=== PATIENT | male | born 1970 | race African-American/Black ===

== ENCOUNTER 2017-04-02 10:54 | Emergency (ER) | payer MEDICAID, OTHER ==
--- NOTE | 2017-04-02 11:19 | EKG REPORT ---
SEVERITY:- BORDERLINE ECG - SINUS RHYTHM CONSIDER ANTERIOR INFARCT : Confirmed by: Saroj Barrientos 02-Apr-2017 11:18:42
--- NOTE | 2017-04-02 11:26 | ER Document Report ---
ED Medical Screen (RME) - General Mode of Arrival: Ambulatory Information source: Patient TRAVEL OUTSIDE OF THE [place] IN LAST 30 DAYS: No - HPI Patient complains to provider of: Left chest pain Onset: Yesterday Onset/Duration: Constant Associated Symptoms: Other - see notes above - Related Data Smoking: Cigarettes Frequency of alcohol use: Social Drug Abuse: Cocaine - quit 20 years ago, Marijuana <SHAHNAZ BINGHAM - Last Filed: 04/02/17 12:19> <BELLE BARNARD - Last Filed: 04/02/17 13:32> - General Chief Complaint: Chest Pain > 30 Stated Complaint: CHEST PAIN Time Seen by Provider: 04/02/17 11:21 Notes: 47-year-old male with history of diabetes mellitus type 2, hyperlipidemia presents to the ED complaining of sharp chest pain that precipitated while working yesterday. Patient reports that the pain has radiated to his left neck , shoulders, and down his left arm. 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 Patient also states that he had mild shortness of breath yesterday, but resolved with aspirin and rest. Patient reports that he was once told that he might have congestive heart failure, but he followed up with another physician and had a negative cardiac stress test was 5 years ago. Reports to marijuana use and past history of cocaine use 20 years ago. (SHAHNAZ BINGHAM) - Related Data Allergies/Adverse Reactions: No Known Allergies Allergy (Verified 04/02/17 10:56) Past Medical History - General Information source: Patient - Social History Cigarette use (# per day): Yes Chew tobacco use (# tins/day): No Frequency of alcohol use: Social Drug Abuse: Cocaine - quit 20 years ago, Marijuana - Past Medical History Cardiac Medical History: Reports: Hx Hypercholesterolemia Endocrine Medical History: Reports: Hx Diabetes Mellitus Type 2 Renal/ Medical History: Denies: Hx Peritoneal Dialysis Psychiatric Medical History: Reports: Hx Depression - Immunizations Hx Diphtheria, Pertussis, Tetanus Vaccination: Yes <SHAHNAZ BINGHAM - Last Filed: 04/02/17 12:19> Review of Systems - Review of Systems Constitutional: No symptoms reported EENT: No symptoms reported Cardiovascular: See HPI, Chest pain - left Respiratory: No symptoms reported Gastrointestinal: No symptoms reported Genitourinary: No symptoms reported Male Genitourinary: No symptoms reported Musculoskeletal: See HPI, Joint pain - left shoulder, Neck pain - left, Other - left arm pain Skin: No symptoms reported Hematologic/Lymphatic: No symptoms reported Neurological/Psychological: No symptoms reported -: Yes All other systems reviewed and negative <SHAHNAZ BINGHAM - Last Filed: 04/02/17 12:19> Physical Exam - General General appearance: Alert In distress: None - Respiratory Respiratory status: No respiratory distress Chest status: Tender - see below Breath sounds: Normal Chest palpation: Tender - Reproducible tenderness to palpation of the anterior left chest wall. No right chest wall tenderness., Other - No lesions noted on the chest.. No: Normal - Cardiovascular Rhythm: Regular Heart sounds: Normal auscultation Murmur: No Friction rub: No Gallop: None auscultated - Abdominal Inspection: Normal Distension: No distension Tenderness: Tender - mild epigastric tenderness to palpation <SHAHNAZ BINGHAM - Last Filed: 04/02/17 12:19> Course - Laboratory Result Diagrams: 04/02/17 12:27 04/02/17 12:27 <BELLE BARNARD - Last Filed: 04/02/17 13:32> - Vital Signs Vital signs: Temp Pulse Resp BP Pulse Ox 98.4 F 90 18 132/85 H 100 04/02/17 11:10 04/02/17 11:10 04/02/17 11:10 04/02/17 11:10 04/02/17 11:10 - Laboratory Laboratory results interpreted by me: 04/02/17 12:27 Chloride 108 H Glucose 114 H Alkaline Phosphatase 35 L Creatine Kinase 315 H Scribe Documentation - Scribe Written by Rodri:: Rodri Wells, 04/02/2017 1240 acting as scribe for :: Nita <SHAHNAZ BINGHAM - Last Filed: 04/02/17 12:19>
[2017-04-02] MEDS ORDERED: NITROGLYCERIN 0.4 MG/TAB 25 TAB/BOTTLE SL PRN (11:27)
[2017-04-02] MEDS ORDERED: ASPIRIN 325 MG TABLET PO ONE (11:27)
[2017-04-02 12:43] LABS: ABSOLUTE EOSINOPHILS # (AUTO) 0.2 10^3/uL (0.0-0.6); ABSOLUTE MONOCYTES (AUTO) 0.5 10^3/uL (0.1-1.4); ABSOLUTE NEUT (AUTO) 3.7 10^3/uL (1.7-8.2); BASOPHILS % (AUTO) 0.7 % (0-2); EOSINOPHILS % (AUTO) 2.3 % (0-6); HEMATOCRIT 47.6 % (37.9-51.0); HEMOGLOBIN 15.6 g/dL (13.5-17.0); HGB HCT DIFFERENCE -0.8; LYMPHOCYTES % (AUTO) 39.9 % (13-45); MEAN CORPUSCULAR HEMOGLOBIN 28.7 pg (27.0-33.4); MEAN CORPUSCULAR HGB CONC 32.7 g/dL (32.0-36.0); MEAN CORPUSCULAR VOLUME 88 fl (80-97); MONOCYTES % (AUTO) 7.2 % (3-13); RED BLOOD COUNT 5.42 10^6/uL (4.35-5.55); RED CELL DISTRIBUTION WIDTH 13.8 % (11.5-14.0); SEGMENTED NEUTROPHILS % (AUTO) 49.9 % (42-78); WHITE BLOOD COUNT 7.4 10^3/uL (4.0-10.5)
--- NOTE | 2017-04-02 12:44 | RADIOLOGY REPORT (SQ) ---
EXAM DESCRIPTION: CHEST PA/LAT COMPLETED DATE/TIME: 04/02/2017 12:36 pm REASON FOR STUDY: chest pain COMPARISON: 02/05/2016 EXAM PARAMETERS: NUMBER OF VIEWS: two views TECHNIQUE: Digital Frontal and Lateral radiographic views of the chest acquired. RADIATION DOSE: NA LIMITATIONS: none FINDINGS: LUNGS AND PLEURA: No opacities, masses or pneumothorax. No pleural effusion. MEDIASTINUM AND HILAR STRUCTURES: No masses or contour abnormalities. HEART AND VASCULAR STRUCTURES: Heart normal size. No evidence for failure. BONES: No acute findings. HARDWARE: None in the chest. OTHER: No other significant finding. IMPRESSION: NO SIGNIFICANT RADIOGRAPHIC FINDING IN THE CHEST. TECHNICAL DOCUMENTATION: JOB ID: [id number] [employer]- All Rights Reserved
[2017-04-02 12:57] LABS: PROTHROMBIN TIME 12.2 SEC (11.4-15.4)
[2017-04-02 13:06] LABS: ALANINE AMINOTRANSFERASE 63 U/L (21-72); ALBUMIN 4.3 g/dL (3.5-5.0); ALKALINE PHOSPHATASE 35 U/L (38-126); ANION GAP 11 (5-19); ASPARTATE AMINO TRANSFERASE 34 U/L (17-59); BILIRUBIN,DIRECT 0.3 mg/dL (0.0-0.4); BILIRUBIN,TOTAL 0.7 mg/dL (0.2-1.3); BLOOD UREA NITROGEN 10 mg/dL (7-20); CALCIUM 9.5 mg/dL (8.4-10.2); CARBON DIOXIDE 24 mmol/L (22-30); CHLORIDE 108 mmol/L (98-107); CREATINE KINASE 315 U/L (55-170); CREATININE RESULT 0.82 mg/dL (0.52-1.25); GLUCOSE 114 mg/dL (75-110); POTASSIUM 4.3 mmol/L (3.6-5.0); SODIUM 142.7 mmol/L (137-145); TOTAL PROTEIN 7.6 g/dL (6.3-8.2)
[2017-04-02 13:16] LABS: CREATINE KINASE MB 2.04 ng/mL (<4.55)
[2017-04-02 13:18] LABS: TROPONIN I < 0.012 ng/mL
--- NOTE | 2017-04-02 16:42 | RADIOLOGY REPORT (SQ) ---
EXAM DESCRIPTION: CT HEAD WITHOUT COMPLETED DATE/TIME: 04/02/2017 4:34 pm REASON FOR STUDY: 5, chest and neck pain with left sided numbness COMPARISON: None. TECHNIQUE: Axial images acquired through the brain without intravenous contrast. Images reviewed wi th bone, brain and subdural windows. Images stored on PACS. All CT scanners at this facility use dose modulation, iterative reconstruction, and/or weight based d osing when appropriate to reduce radiation dose to as low as reasonably achievable (ALARA). [facility]: Dose Right [facility]: CareDose [facility]: Dose Right [facility]: Teradose 4D [facility]: [employer] RADIATION DOSE: 64.61 mGy. LIMITATIONS: None. FINDINGS: VENTRICLES: Normal size and contour. CEREBRUM: No masses. No hemorrhage. No midline shift. Normal vale/white matter differentiation. N o evidence for acute infarction. CEREBELLUM: No masses. No hemorrhage. No alteration of density. No evidence for acute infarction. EXTRAAXIAL SPACES: No fluid collections. No masses. ORBITS AND GLOBE: No intra- or extraconal masses. Normal contour of globe without masses. CALVARIUM: No fracture. PARANASAL SINUSES: Small amount of fluid noted in the right maxillary sinus. The paranasal sinuses a nd mastoid air cells are otherwise clear. SOFT TISSUES: No mass or hematoma. OTHER: No other significant finding. IMPRESSION: No acute intracranial abnormality identified. Small amount of fluid noted in the right maxillary sinus. TECHNICAL DOCUMENTATION: JOB ID: [id number] Quality ID # [id number]: Final reports with documentation of one or more dose reduction techniques (e.g., Au tomated exposure control, adjustment of the mA and/or kV according to patient size, use of iterative reconstruction technique) 2010 [employer]- All Rights Reserved
--- NOTE | 2017-04-02 16:47 | ER Document Report ---
ED Cardiac - General Chief Complaint: Chest Pain > 30 Stated Complaint: CHEST PAIN Time Seen by Provider: 04/02/17 11:21 Mode of Arrival: Ambulatory Information source: Patient Notes: 47-year-old male who presents today with what he states is the onset of some chest pain with radiation to his left lateral neck as well as some numbness to his left arm. He denies any weakness to his arm. Patient states he has had pain and numbness like this intermittently for "a few years". He denies any and all nausea, vomiting, fevers, shortness of breath, calf pain or leg swelling. Patient states he has had an unremarkable stress test in the past. Patient denies any posterior neck pain but states that the pain in his chest ones at the lateral left side of his neck. Patient states he smokes marijuana occasionally but denies any cocaine. Patient denies any family history of early heart disease. Patient does not smoke cigarettes. No recent trips or travel. Denies any and all shortness of breath. TRAVEL OUTSIDE OF THE [place] IN LAST 30 DAYS: No - HPI Patient complains to provider of: Chest pain Was the onset of pain: Gradual Is the pain a: Chronic problem Chest pain location: Substernal Quality of pain: Mild, Cramping Chest pain radiation location: None - See above Severity now: None Severity at worst: Mild Pain level currently: Denies Cardiac risk factors: Diabetes, Dyslipidemia Positive cardiac history: No Associated symptoms: Other - See above Exacerbated by: Denies Relieved by: Nothing Similar symptoms previously: No Recently seen / treated by doctor: No - Related Data Allergies/Adverse Reactions: No Known Allergies Allergy (Verified 04/02/17 10:56) Past Medical History - General Information source: Patient - Social History Smoking Status: Never Smoker Cigarette use (# per day): Yes Chew tobacco use (# tins/day): No Frequency of alcohol use: None Drug Abuse: None Family History: Reviewed & Not Pertinent Patient has suicidal ideation: No Patient has homicidal ideation: No - Past Medical History Cardiac Medical History: Reports: Hx Hypercholesterolemia Endocrine Medical History: Reports: Hx Diabetes Mellitus Type 2 Renal/ Medical History: Denies: Hx Peritoneal Dialysis Psychiatric Medical History: Reports: Hx Depression - Immunizations Hx Diphtheria, Pertussis, Tetanus Vaccination: Yes Review of Systems - Review of Systems Constitutional: denies: Fever EENT: denies: Eye discharge, Nose discharge Cardiovascular: denies: Palpitations Respiratory: denies: Short of breath Gastrointestinal: denies: Abdomen distended, Abdominal pain, Vomiting Musculoskeletal: denies: Leg swelling Skin: Other - no hives. denies: Rash Neurological/Psychological: Other - no slurred speech -: Yes All other systems reviewed and negative Physical Exam - Vital signs Vitals: Temp Pulse Resp BP Pulse Ox 98.4 F 90 18 132/85 H 100 04/02/17 11:10 04/02/17 11:10 04/02/17 11:10 04/02/17 11:10 04/02/17 11:10 Notes: Reviewed vital signs and nursing note as charted by RN. CONSTITUTIONAL: Alert and oriented and responds appropriately to questions. Well -appearing; well-nourished HEAD: Normocephalic; atraumatic EYES: PERRL ENT: Normal nose; no rhinorrhea; moist mucous membranes; pharynx without lesions noted NECK: Supple without meningismus; no carotid bruits no obvious neck swelling; no cervical lymphadenopathy, no masses CARD: Regular rate and rhythm; no murmurs, no clicks, no rubs, no gallops; symmetric distal pulses RESP: Normal chest excursion without splinting or tachypnea; breath sounds clear and equal bilaterally; no wheezes, no rhonchi, no rales ABD/GI: Normal bowel sounds; non-distended; soft, non-tender, no rebound, no guarding; no palpable organomegaly or masses BACK: The back appears normal and is non-tender to palpation, there is no CVA tenderness EXT: Normal ROM in all joints; non-tender to palpation; no cyanosis, no effusions, no edema SKIN: Normal color for age and race; warm; dry; good turgor; capillary refill < 2 seconds; no acute lesions noted NEURO: CN II through XII intact. Patient has 5 out of 5 bilateral upper and lower extremity strength. Patient does endorse some mild decreased sensation to the left lateral shoulder. PSYCH: The patient's mood and manner are appropriate. Grooming and personal hygiene are appropriate. Course - Re-evaluation Re-evalutation: Given the above history and physical examination I believe pulmonary embolism to be extremely unlikely. EKG, troponin, x-ray of the chest, and aspirin has been provided. Patient has no weakness on examination. Patient's pain has been intermittent for 2-3 years. He denies any recent aggravating or relieving factors. Patient had an evaluation for this in the past with an unremarkable stress test. Patient has no carotid bruits no obvious neck swelling or tenderness. EKG showed heart rate of 89, normal sinus rhythm, normal axis, no obvious ST elevation or depression. Poor R-wave progression. EKG from January 2016 shows no acute change. 04/02/17 16:46 First set cardiac enzymes unremarkable. CT of the head and CTA of the neck has been ordered to evaluate for possible CVA or carotid/vertebral dissection. Repeat troponin is pending. 04/02/17 16:47 Chest x-ray shows normal heart, normal mediastinum, no fractures, normal lung tavares, no pneumothorax. CT scan of the head is unremarkable. 04/02/17 17:20 Repeat troponin unremarkable. Patient's pain is improved. No change in neurologic exam. CT of the head and CTA of the neck shows no acute intracranial pathology or arterial pathology. Given the above history, physical, extensive workup, patient will be discharged home with strict return precautions and follow-up with an outpatient primary care physician. Patient is in agreement with this plan. - Vital Signs Vital signs: Temp Pulse Resp BP Pulse Ox 98.4 F 90 18 132/85 H 100 04/02/17 11:10 04/02/17 11:10 04/02/17 11:10 04/02/17 11:10 04/02/17 11:10 - Laboratory Result Diagrams: 04/02/17 12:27 04/02/17 12:27 Laboratory results interpreted by me: 04/02/17 12:27 Chloride 108 H Glucose 114 H Alkaline Phosphatase 35 L Creatine Kinase 315 H Discharge - Discharge Clinical Impression: Paresthesias in left hand Chest pain Qualifiers: Chest pain type: unspecified Qualified Code(s): R07.9 - Chest pain, unspecified Condition: Good Disposition: HOME, SELF-CARE Additional Instructions: Come back immediately with any return of pain, change in location or quality of pain, weakness, increased numbness, calf pain, leg swelling, fevers, or any other acute problems. Please follow-up with primary care provider we have suggested Referrals: STACY,MAGO [Primary Care Provider] - Follow up as needed ARTURO PÉREZ MD [ACTIVE STAFF] - Follow up as needed
--- NOTE | 2017-04-02 16:49 | RADIOLOGY REPORT (SQ) ---
EXAM DESCRIPTION: CTA NECK COMPLETED DATE/TIME: 04/02/2017 4:34 pm REASON FOR STUDY: 5, chest and neck pain with left sided numbness COMPARISON: None. TECHNIQUE: Axial dynamic scanning technique with dynamic contrast enhancement through the extra-aircraft shipping checker nial carotid and vertebral arteries. Multiplanar reconstruction. 3-D MIPS and Volume-rendered imag es acquired at the workstation and saved to PACS. Images are reviewed in soft tissue, bone, lung w indows. All CT scanners at this facility use dose modulation, iterative reconstruction, and/or weight based d osing when appropriate to reduce radiation dose to as low as reasonably achievable (ALARA). [facility]: Dose Right [facility]: CareDose [facility]: Dose Right [facility]: Teradose 4D [facility]: [employer] CONTRAST TYPE AND DOSE: contrast/concentration: Isovue 370.00 mg/ml; Total Contrast Delivered: 70.0 ml; Total Saline Delivered: 75.0 ml RENAL FUNCTION: BUN 10 creatinine 0.82 LIMITATIONS: None. FINDINGS: AORTIC ARCH: The a right subclavian, right common carotid, and left common carotid arterie s share a common origin with a trifurcation. Bilateral subclavian arteries are patent. No dissecti on. RIGHT CAROTIDS: Patent common, internal and external carotid arteries without suggestion of significa nt stenosis or irregular plaque. No dissection. RIGHT VERTEBRAL: Patent. No dissection. LEFT CAROTIDS: Patent common, internal and external carotid arteries without suggestion of significan t stenosis or irregular plaque. No dissection. LEFT VERTEBRAL: Patent. No dissection. OTHER: No other significant finding. OTHER: 3-D reconstructions confirm findings. IMPRESSION: NORMAL CTA OF THE EXTRA-CRANIAL CAROTID AND VERTEBRAL ARTERIES. COMMENT: Quality ID #[id number]: Measurements of distal internal carotid diameter were used as the denomina tor for stenosis measurement. TECHNICAL DOCUMENTATION: JOB ID: [id number] Quality ID # [id number]: Final reports with documentation of one or more dose reduction techniques (e.g., Au tomated exposure control, adjustment of the mA and/or kV according to patient size, use of iterative reconstruction technique) 2010 [facility]- All Rights Reserved
[2017-04-02 18:15] VITALS: BP 144/95
== END 2017-04-02 18:15 | disposition home or self-care (01) ==
LOC: ER 10:54
DX: R20.0 Anesthesia of skin (principal); R07.9 Chest pain, unspecified
CPT/HCPCS: 36415; 70450; 70498; 71020; 80053; 82550; 82553; 84484; 85025; 85610; 93005; 93010; 99285

== ENCOUNTER 2017-11-11 12:08 | Emergency (ER) | payer SELFPAY ==
[2017-11-11] MEDS ORDERED: KETOROLAC TROMETHAMINE INJ/PF 30 MG/1 ML SDV IV ONE (13:00)
[2017-11-11] MEDS ORDERED: PROCHLORPERAZINE EDISYLATE INJ 10 MG/2 ML VIAL IV ONE (13:00)
--- NOTE | 2017-11-11 13:05 | ER Document Report ---
ED Medical Screen (RME) - General Chief Complaint: Headache Stated Complaint: HEADACHE, HAND LACERATION Time Seen by Provider: 11/11/17 12:59 Mode of Arrival: Ambulatory Information source: Patient Notes: Patient is a 47-year-old diabetic patient who presents to the ER today for headache for a couple of days ever since hitting his head on a door frame at work accidentally. Patient did not lose consciousness, has had no blurred vision, nausea, vomiting, states that he does not usually get headaches or migraines. He denies any light or sound sensitivity. Patient also has a cut to the third finger on his right hand that is approximately a week old that he is concerned for infection. Patient states it hurts to bend the finger and that he feels swelling going up to his wrist. He denies any fevers or chills, drainage from the area. TRAVEL OUTSIDE OF THE [place] IN LAST 30 DAYS: No - Related Data Allergies/Adverse Reactions: No Known Allergies Allergy (Verified 04/02/17 10:56) Past Medical History - General Information source: Patient - Past Medical History Cardiac Medical History: Reports: Hx Hypercholesterolemia Endocrine Medical History: Reports: Hx Diabetes Mellitus Type 2 Renal/ Medical History: Denies: Hx Peritoneal Dialysis Psychiatric Medical History: Reports: Hx Depression - Immunizations Hx Diphtheria, Pertussis, Tetanus Vaccination: Yes Review of Systems - Review of Systems Skin: See HPI Neurological/Psychological: See HPI Physical Exam - Vital signs Vitals: Temp Pulse Resp BP Pulse Ox 98.5 F 93 20 147/94 H 98 11/11/17 12:20 11/11/17 12:20 11/11/17 12:20 11/11/17 12:20 11/11/17 12:20 - Notes Notes: PHYSICAL EXAMINATION: GENERAL: Well-appearing and in no acute distress. NEUROLOGICAL: Cranial nerves grossly intact. Normal sensory/motor exams. SKIN: Warm, Dry, normal turgor, 1 cm laceration, no drainage or erythema to dorsal right 3rd digit of right hand over PIP joint, pt can bend finger but has pain to do so Course - Vital Signs Vital signs: Temp Pulse Resp BP Pulse Ox 98.5 F 93 20 147/94 H 98 11/11/17 12:20 11/11/17 12:20 11/11/17 12:20 11/11/17 12:20 11/11/17 12:20
[2017-11-11 13:38] LABS: ABSOLUTE BASOPHILS # (AUTO) 0.1 10^3/uL (0.0-0.2); ABSOLUTE EOSINOPHILS # (AUTO) 0.4 10^3/uL (0.0-0.6); ABSOLUTE LYMPHOCYTES (AUTO) 3.4 10^3/uL (0.5-4.7); ABSOLUTE MONOCYTES (AUTO) 0.6 10^3/uL (0.1-1.4); BASOPHILS % (AUTO) 0.9 % (0-2); EOSINOPHILS % (AUTO) 4.2 % (0-6); HEMATOCRIT 47.2 % (37.9-51.0); HEMOGLOBIN 16.2 g/dL (13.5-17.0); LYMPHOCYTES % (AUTO) 35.8 % (13-45); MEAN CORPUSCULAR HEMOGLOBIN 29.4 pg (27.0-33.4); MEAN CORPUSCULAR HGB CONC 34.3 g/dL (32.0-36.0); MEAN CORPUSCULAR VOLUME 86 fl (80-97); MONOCYTES % (AUTO) 6.6 % (3-13); PLATELET COUNT 325 10^3/uL (150-450); RED BLOOD COUNT 5.49 10^6/uL (4.35-5.55); RED CELL DISTRIBUTION WIDTH 13.3 % (11.5-14.0); SEGMENTED NEUTROPHILS % (AUTO) 52.5 % (42-78); TOTAL CELLS COUNTED % (AUTO) 100 %; WHITE BLOOD COUNT 9.6 10^3/uL (4.0-10.5)
[2017-11-11 13:47] LABS: APPEARANCE,URINE CLEAR; BILIRUBIN,URINE NEGATIVE (NEGATIVE); COLOR,URINE YELLOW; GLUCOSE, URINE NEGATIVE (NEGATIVE); KETONES,URINE NEGATIVE (NEGATIVE); LEUKOCYTE ESTERASE,URINE NEGATIVE (NEGATIVE); NITRITE,URINE NEGATIVE (NEGATIVE); PROTEIN,URINE NEGATIVE (NEGATIVE); UROBILINOGEN,URINE NEGATIVE mg/dL (<2.0)
[2017-11-11 13:55] LABS: ALANINE AMINOTRANSFERASE 65 U/L (21-72); ALBUMIN 4.8 g/dL (3.5-5.0); ALKALINE PHOSPHATASE 40 U/L (38-126); ANION GAP 8 (5-19); ASPARTATE AMINO TRANSFERASE 31 U/L (17-59); BILIRUBIN,DIRECT 0.2 mg/dL (0.0-0.4); BILIRUBIN,TOTAL 0.6 mg/dL (0.2-1.3); BLOOD UREA NITROGEN 10 mg/dL (7-20); CALCIUM 10.3 mg/dL (8.4-10.2); CARBON DIOXIDE 26 mmol/L (22-30); CHLORIDE 105 mmol/L (98-107); GLUCOSE 111 mg/dL (75-110); POTASSIUM 4.4 mmol/L (3.6-5.0); SODIUM 138.8 mmol/L (137-145); TOTAL PROTEIN 7.8 g/dL (6.3-8.2)
[2017-11-11] MEDS ORDERED: HYDROCODONE/ACETAMINOPHEN 5-325 MG (6 TAB/ER DISP) PO PRN (16:18)
[2017-11-11] MEDS ORDERED: CEPHALEXIN 500 MG CAPSULE PO ONE (16:18)
--- NOTE | 2017-11-11 16:18 | ER Document Report ---
ED Headache - General Chief Complaint: Headache Stated Complaint: HEADACHE, HAND LACERATION Time Seen by Provider: 11/11/17 12:59 Mode of Arrival: Ambulatory TRAVEL OUTSIDE OF THE [place] IN LAST 30 DAYS: No - Related Data Allergies/Adverse Reactions: No Known Allergies Allergy (Verified 04/02/17 10:56) Past Medical History - General Information source: Patient - Social History Smoking Status: Current Every Day Smoker Chew tobacco use (# tins/day): No Frequency of alcohol use: Social Drug Abuse: Marijuana Family History: Reviewed & Not Pertinent Patient has suicidal ideation: No Patient has homicidal ideation: No - Past Medical History Cardiac Medical History: Reports: Hx Hypercholesterolemia Endocrine Medical History: Reports: Hx Diabetes Mellitus Type 2 Renal/ Medical History: Denies: Hx Peritoneal Dialysis Psychiatric Medical History: Reports: Hx Depression - Immunizations Hx Diphtheria, Pertussis, Tetanus Vaccination: Yes Physical Exam - Vital signs Vitals: Temp Pulse Resp BP Pulse Ox 98.5 F 93 20 147/94 H 98 11/11/17 12:20 11/11/17 12:20 11/11/17 12:20 11/11/17 12:20 11/11/17 12:20 Course - Vital Signs Vital signs: Temp Pulse Resp BP Pulse Ox 98.5 F 93 20 147/94 H 98 11/11/17 12:20 11/11/17 12:20 11/11/17 12:20 11/11/17 12:20 11/11/17 12:20 - Laboratory Result Diagrams: 11/11/17 13:25 11/11/17 13:25 Laboratory results interpreted by me: 11/11/17 13:25 Glucose 111 H Calcium 10.3 H Discharge - Discharge Clinical Impression: Headache Qualifiers: Headache type: unspecified Headache chronicity pattern: acute headache Intractability: not intractable Qualified Code(s): R51 - Headache Laceration of hand with infection Qualifiers: Encounter type: sequela Laterality: right Qualified Code(s): S61.411S - Laceration without foreign body of right hand, sequela; L08.9 - Local infection of the skin and subcutaneous tissue, unspecified; L08.9 - Local infection of the skin and subcutaneous tissue, unspecified Condition: Stable Disposition: HOME, SELF-CARE Additional Instructions: Return immediately for any new or worsening symptoms. Follow up with primary care provider, call tomorrow to make followup appointment. Prescriptions: Cephalexin Monohydrate [Keflex 500 mg Capsule] 500 mg PO BID 10 Days #20 capsule Forms: Return to Work
[2017-11-11 17:07] VITALS: BP 134/80
== END 2017-11-11 16:45 | disposition home or self-care (01) ==
LOC: ER 12:08
DX: R51 Headache (principal); E78.00 Pure hypercholesterolemia, unspecified; I10 Essential (primary) hypertension; S61.411S Laceration without foreign body of right hand, sequela; L08.9 Local infection of the skin and subcutaneous tissue, unspecified; W45.8XXS Other foreign body or object entering through skin, sequela; F17.200 Nicotine dependence, unspecified, uncomplicated; E11.9 Type 2 diabetes mellitus without complications
CPT/HCPCS: 99284; 96374; 96375; 36415; 85025; 80053; 81001; J1885; J0780

== ENCOUNTER 2017-11-21 06:52 | Emergency (ER) | payer SELFPAY ==
--- NOTE | 2017-11-21 08:07 | ER Document Report ---
ED General - General Chief Complaint: Headache Stated Complaint: HEADACHE Time Seen by Provider: 11/21/17 07:33 Mode of Arrival: Ambulatory Information source: Patient Notes: 47-year-old male history of diabetes who is not on any medication presents with complaints of tingling sensations in the left hand left foot as well as headache on the left frontal intermittent sharp over the past 2 weeks. Pt notes it started after striking his head, no loc, seen and dc as concussion last week , took norco with some improvement. TRAVEL OUTSIDE OF THE [place] IN LAST 30 DAYS: No - HPI Onset: Other Onset/Duration: Intermittent Quality of pain: Sharp Severity: Mild Pain Level: 1 Associated symptoms: Headache Exacerbated by: Denies Relieved by: Denies Similar symptoms previously: Yes Recently seen / treated by doctor: Yes - Related Data Allergies/Adverse Reactions: No Known Allergies Allergy (Verified 11/21/17 07:32) Past Medical History - Social History Smoking Status: Current Every Day Smoker Cigarette use (# per day): Yes Chew tobacco use (# tins/day): No Smoking Education Provided: No Frequency of alcohol use: Social Drug Abuse: Marijuana Family History: Reviewed & Not Pertinent Patient has suicidal ideation: No Patient has homicidal ideation: No - Past Medical History Cardiac Medical History: Reports: Hx Hypercholesterolemia, Hx Hypertension Endocrine Medical History: Reports: Hx Diabetes Mellitus Type 2 Renal/ Medical History: Denies: Hx Peritoneal Dialysis Psychiatric Medical History: Reports: Hx Depression - Immunizations Hx Diphtheria, Pertussis, Tetanus Vaccination: Yes Review of Systems - Review of Systems Notes: REVIEW OF SYSTEMS: CONSTITUTIONAL : Denies fever, chills, or sweats. Denies recent illness. EENT: Denies eye, ear, throat, or mouth pain or symptoms. Denies nasal or sinus congestion or discharge. Denies throat, tongue, or mouth swelling or difficulty swallowing. CARDIOVASCULAR: Denies chest pain. Denies palpitations or racing or irregular heart beat. Denies ankle edema. RESPIRATORY: Denies cough, cold, or chest congestion. Denies shortness of breath, difficulty breathing, or wheezing. GASTROINTESTINAL: Denies abdominal pain or distention. Denies nausea, vomiting , or diarrhea. Denies blood in vomitus, stools, or per rectum. Denies black, tarry stools. Denies constipation. GENITOURINARY: Denies difficulty urinating, painful urination, burning, frequency, blood in urine, or discharge. MUSCULOSKELETAL: Denies back or neck pain or stiffness. Denies joint pain or swelling. SKIN: Denies rash, lesions or sores. HEMATOLOGIC : Denies easy bruising or bleeding. LYMPHATIC: Denies swollen, enlarged glands. NEUROLOGICAL: left hand numbness, left foot numbness, left frontal headache ALL OTHER SYSTEMS REVIEWED AND NEGATIVE. Dictation was performed using [employer] voice recognition software PHYSICAL EXAMINATION: GENERAL: Well-appearing, well-nourished and in no acute distress. HEAD: Atraumatic, normocephalic. EYES: Pupils equal round and reactive to light, extraocular movements intact, sclera anicteric, conjunctiva are normal. ENT: Nares patent, oropharynx clear without exudates. Moist mucous membranes. NECK: Normal range of motion, supple without lymphadenopathy LUNGS: Breath sounds clear to auscultation bilaterally and equal. No wheezes rales or rhonchi. HEART: Regular rate and rhythm without murmurs ABDOMEN: Soft, nontender, nondistended abdomen. No guarding, no rebound. No masses appreciated. Musculoskeletal: Normal range of motion, no pitting or edema. No cyanosis. NEUROLOGICAL: Cranial nerves grossly intact. Normal speech, normal gait. Normal sensory, motor exams finger ot nose heel ot hardin is normal PSYCH: Normal mood, normal affect. SKIN: Warm, Dry, normal turgor, no rashes or lesions noted. Physical Exam - Vital signs Vitals: Temp Pulse Resp BP Pulse Ox 98.0 F 79 16 133/84 H 99 11/21/17 06:56 11/21/17 06:56 11/21/17 06:56 11/21/17 06:56 11/21/17 06:56 Course - Re-evaluation Re-evalutation: 11/21/17 08:22 Patient's neurological complaints are intermittent, he is unable to explain when the come on or go away, this may be more secondary to her neuropathic pain 11/21/17 11:[address] of the head was normal, there was concerns for inflammatory changes of the sinuses but that is on the right side patient's pains on the left and does not meet this concern. His neurological symptoms are intermittent I will have him follow-up with neurologist and is otherwise well-appearing no distress patient wishes to go home before medications even start to work I explained to him very strict return precautions he states he will return if there are any other issues After performing a Medical Screening Examination, I estimate there is LOW risk for ACUTE GLAUCOMA, TEMPORAL ARTERITIS, MENINGITIS, INCRANIAL HEMORRHAGE, or ISCHEMIC STROKE thus I consider the discharge disposition reasonable. I have reevaluated this patient multiple times and no significant life threatening changes are noted. The patient and I have discussed the diagnosis and risks, and we agree with discharging home with close follow-up with the understanding that symptoms and presentations can change. We also discussed returning to the Emergency Department immediately if new or worsening symptoms occur. We have discussed the symptoms which are most concerning (e.g., changing or worsening symptoms, new numbness or weakness, vomiting, fever) that necessitate immediate return. - Vital Signs Vital signs: Temp Pulse Resp BP Pulse Ox 98.0 F 81 16 136/92 H 98 11/21/17 09:20 11/21/17 09:20 11/21/17 09:20 11/21/17 09:20 11/21/17 09:20 - Diagnostic Test Radiology reviewed: Image reviewed, Reports reviewed - Report given to patient Discharge - Discharge Clinical Impression: Headache Qualifiers: Headache type: unspecified Headache chronicity pattern: acute headache Intractability: not intractable Qualified Code(s): R51 - Headache Condition: Stable Disposition: HOME, SELF-CARE Instructions: Headache ([facility]) Prescriptions: Diphenhydramine HCl [Benadryl 50 mg Capsule] 1 cap PO Q6 PRN #14 capsule PRN Reason: Prochlorperazine Maleate [Compazine 10 mg Tablet] 10 mg PO Q6 #10 tablet Referrals: DAVIE GAONA MD [ACTIVE STAFF] - Follow up tomorrow
[2017-11-21] MEDS ORDERED: DIPHENHYDRAMINE HCL 50 MG CAPSULE PO ONE (08:09)
[2017-11-21] MEDS ORDERED: PROCHLORPERAZINE MALEATE 5 MG TABLET PO ONE (08:09)
--- NOTE | 2017-11-21 08:32 | RADIOLOGY REPORT (SQ) ---
EXAM DESCRIPTION: CT HEAD WITHOUT COMPLETED DATE/TIME: 11/21/2017 8:18 am REASON FOR STUDY: left hand , left foot numbness COMPARISON: 03/23/2017 CT brain TECHNIQUE: Axial images acquired through the brain without intravenous contrast. Images reviewed wi th bone, brain and subdural windows. Images stored on PACS. All CT scanners at this facility use dose modulation, iterative reconstruction, and/or weight based d osing when appropriate to reduce radiation dose to as low as reasonably achievable (ALARA). [facility]: Dose Right [facility]: CareDose [facility]: Dose Right [facility]: Teradose 4D [facility]: [employer] RADIATION DOSE: CT Rad equipment meets quality standard of care and radiation dose reduction techniq ues were employed. CTDIvol: 64.6 mGy. DLP: 1163 mGy-cm. mGy. LIMITATIONS: None. FINDINGS: VENTRICLES: Normal size and contour. CEREBRUM: No masses. No hemorrhage. No midline shift. No evidence for acute infarction. Normal gra y/white matter differentiation. No areas of low density in the white matter. CEREBELLUM: No masses. No hemorrhage. No alteration of density. No evidence for acute infarction. EXTRAAXIAL SPACES: No fluid collections. No masses. ORBITS AND GLOBE: No intra- or extraconal masses. Normal contour of globe without masses. CALVARIUM: No fracture. PARANASAL SINUSES: Circumferential mucous membrane thickening right maxillary sinus, anterior ethmoid air cells and right frontal sinus SOFT TISSUES: No mass or hematoma. OTHER: No other significant finding. IMPRESSION: NORMAL BRAIN CT WITHOUT CONTRAST. INFLAMMATORY CHANGES RIGHT FRONTAL, ETHMOID, AND MAXILLARY SINUS EVIDENCE OF ACUTE STROKE: NO. COMMENT: Quality ID # [id number]: Final reports with documentation of one or more dose reduction techniques (e.g., Automated exposure control, adjustment of the mA and/or kV according to patient size, use of iterative reconstruction technique) TECHNICAL DOCUMENTATION: JOB ID: [id number] 1937 [employer]- All Rights Reserved
[2017-11-21 09:22] VITALS: BP 136/92
== END 2017-11-21 09:21 | disposition home or self-care (01) ==
LOC: ER 06:52
DX: R51 Headache (principal); F17.210 Nicotine dependence, cigarettes, uncomplicated; E78.00 Pure hypercholesterolemia, unspecified; I10 Essential (primary) hypertension; E11.9 Type 2 diabetes mellitus without complications
CPT/HCPCS: 99284; 70450; S0183

== ENCOUNTER 2018-08-05 21:15 | Emergency (ER) | payer SELFPAY ==
[2018-08-06] MEDS ORDERED: LIDOCAINE 2% VISCOUS SOLN 20 ML UDCUP PO ONE (00:09)
[2018-08-06] MEDS ORDERED: IBUPROFEN 800 MG TABLET PO ONE (00:09)
[2018-08-06] MEDS ORDERED: CLINDAMYCIN HCL 150 MG CAPSULE PO ONE (00:09)
--- NOTE | 2018-08-06 00:13 | ER Document Report ---
ED Oral Problem - General Chief Complaint: Jaw Pain Stated Complaint: NECK PAIN, RIGHT SIDE HEAD AND NECK PAIN Time Seen by Provider: 08/05/18 23:30 Mode of Arrival: Ambulatory Information source: Patient Notes: 48-year-old male presented to ED for complaint of pain to the right jaw swollen gums and jaw pain for the last 3 days. He states he is actually had a dental pain for a long time but it is been worse for the last 3 days. Patient states he took Tylenol at home with no relief. Patient is alert and oriented respirations regular and unlabored speaking in full sentences walking with a even steady gait. TRAVEL OUTSIDE OF THE [place] IN LAST 30 DAYS: No - HPI Patient complains to provider of: Jaw pain, Swelling of jaw, Toothache Onset: Other - Swelling is been for the last 3 days but the pain has been there for a long time Onset: Gradual Quality of pain: Sharp, Throbbing Severity: Severe Pain Level: 5 Swollen jaw/face: Mild Associated symptoms: Jaw pain, Toothache Worsened by: Other Relieved by: Nothing - Hot and cold Similar symptoms previously: Yes Recently seen / treated by doctor/dentist: No - Related Data Allergies/Adverse Reactions: No Known Allergies Allergy (Verified 11/21/17 07:32) Past Medical History - General Information source: Patient - Social History Smoking Status: Current Every Day Smoker Cigarette use (# per day): Yes - Pack per day Chew tobacco use (# tins/day): No Smoking Education Provided: Yes - 4 minutes Frequency of alcohol use: Social Drug Abuse: None, Marijuana Family History: Reviewed & Not Pertinent Patient has suicidal ideation: No Patient has homicidal ideation: No - Past Medical History Cardiac Medical History: Reports: Hx Hypercholesterolemia, Hx Hypertension Pulmonary Medical History: Reports: None EENT Medical History: Reports: None Neurological Medical History: Reports: None Endocrine Medical History: Reports: Hx Diabetes Mellitus Type 2 Renal/ Medical History: Reports: None Malignancy Medical History: Reports None GI Medical History: Reports: None Musculoskeletal Medical History: Reports None Skin Medical History: Reports None Psychiatric Medical History: Reports: Hx Depression Traumatic Medical History: Reports: None Infectious Medical History: Reports: None Surgical Hx: Negative Past Surgical History: Reports: None - Immunizations Hx Diphtheria, Pertussis, Tetanus Vaccination: Yes Review of Systems - Review of Systems Constitutional: No symptoms reported EENT: Mouth pain, Mouth swelling, Dental problem, Other - Planes of pain to the right side of his jaw and mouth Cardiovascular: No symptoms reported Respiratory: No symptoms reported Gastrointestinal: No symptoms reported Genitourinary: No symptoms reported Male Genitourinary: No symptoms reported Musculoskeletal: No symptoms reported Skin: No symptoms reported Hematologic/Lymphatic: No symptoms reported Neurological/Psychological: No symptoms reported -: Yes All other systems reviewed and negative Physical Exam - Vital signs Vitals: Temp Pulse Resp BP Pulse Ox 98.6 F 80 20 132/87 H 98 08/05/18 21:23 08/05/18 21:23 08/05/18 21:23 08/05/18 21:23 08/05/18 21:23 Interpretation: Normal - General General appearance: Appears well, Alert - HEENT Head: Normocephalic, Atraumatic Eyes: Normal Pupils: PERRL Ears: Normal External canal: Normal Tympanic membrane: Normal Sinus: Normal Nasal: Normal Mouth/Lips: Caries Mucous membranes: Normal Teeth diagram: 1 - Minimal right-sided jaw swelling with multiple dental cavities on the right side. No signs or symptoms of William's angina. Pharynx: Normal Neck: Anterior cervical chain - Minimal lymphadenopathy - Respiratory Respiratory status: No respiratory distress Chest status: Nontender Breath sounds: Normal Chest palpation: Normal - Cardiovascular Rhythm: Regular Heart sounds: Normal auscultation Murmur: No - Abdominal Inspection: Normal Distension: No distension Bowel sounds: Normal Tenderness: Nontender Organomegaly: No organomegaly - Back Back: Normal, Nontender - Extremities General upper extremity: Normal inspection, Nontender, Normal color, Normal ROM , Normal temperature General lower extremity: Normal inspection, Nontender, Normal color, Normal ROM , Normal temperature, Normal weight bearing. No: Herminio's sign - Neurological Neuro grossly intact: Yes Cognition: Normal Orientation: AAOx4 [place] Coma Scale Eye Opening: Spontaneous [place] Coma Scale Verbal: Oriented [place] Coma Scale Motor: Obeys Commands Alejandro Coma Scale Total: 15 Speech: Normal Motor strength normal: LUE, RUE, LLE, RLE Sensory: Normal - Psychological Associated symptoms: Normal affect, Normal mood - Skin Skin Temperature: Warm Skin Moisture: Dry Skin Color: Normal Course - Re-evaluation Re-evalutation: 08/06/18 02:19 Patient was treated with clindamycin p.o., ibuprofen and viscous lidocaine for his dental pain. Patient was discharged home with instructions to follow-up with a dentist as soon as possible. Verbalized understanding and agreement with treatment plan. Presentation is most consistent with likely an infected tooth. Airway is patent. Vitals within normal limits. Patient is able swallow without any difficulty. There is no significant facial swelling. No evidence of William angina, apical abscess, or airway obstruction. Patient will be started on antibiotics. I've instructed to follow-up with dentistry as earliest ability for definitive management. At this time will discharge with return precautions and follow-up recommendations. Verbal discharge instructions given a the bedside and opportunity for questions given. Medication warnings reviewed. Patient is in agreement with this plan and has verbalized understanding of return precautions and the need for primary care follow-up in the next 24-72 hours. - Vital Signs Vital signs: Temp Pulse Resp BP Pulse Ox 98.2 F 65 18 132/89 H 100 08/06/18 00:17 08/06/18 00:17 08/06/18 00:17 08/06/18 00:17 08/06/18 00:17 Discharge - Discharge Clinical Impression: Pain due to dental caries Condition: Stable Disposition: HOME, SELF-CARE Instructions: [facility] Additional Instructions: TOOTHACHE: Your pain is due to dental decay. The tooth must be repaired in order for you to feel better. You will, therefore, be referred to a dentist. We do not have dentists on the staff at [facility]. Severe swelling or drainage around a tooth usually means a dental abscess. This also requires evaluation and treatment by the dentist, but antibiotics may be prescribed while awaiting dental treatment. You should be rechecked immediately if you develop major swelling of the face, increasing pain, a lump in the jaw or gums, headache, difficulty swallowing, or fever. CLINDAMYCIN: You have been given a prescription for the antibiotic clindamycin. It is often prescribed for infections in the mouth, such as dental infections or abscesses, and for skin infections due to MRSA. It's important that you take all the medication, unless instructed otherwise by your physician. Failure to complete the entire course can result in relapse of your condition. Common side effects of antibiotics include nausea, intestinal cramping, or diarrhea. Women may develop vaginal yeast infections, and babies can get yeast (thrush) in the mouth following the use of antibiotics. Contact your physician if you develop significant side effects from this medication. Allergy to this antibiotic can result in hives, wheezing, faintness, or itching. If symptoms of allergy occur, stop the medication and call the doctor. FOLLOW-UP CARE: You have been referred for follow-up care to the dentists listed below. Call the dentists office for an appointment as you were instructed or within the next two days. If you experience worsening or a significant change in your symptoms, notify the physician immediately or return to the Emergency Department at any time for re-evaluation. [facility] [address] [place] [address] [facility] [address] [facility] [address] [facility] [address] [facility] [email or web address] [address] [place] [address] Friday- 8:00am to 5:00 pm Will see patients from other [facility]. Charges based on income and family size and accepts Medicare, Medicaid, and Insurances Will pull molars [facility] [employer] [facility] [id number] Hours of Operation 8:00 am - 4:30 pm weekdays The following dental offices accept Medicaid: [facility] Dr. [address] Dr. Price Dr. Crocker Dr. Lanier Brenton Barclay [place], and [facility] Dr. Mauricio ([place]) Dr. Soto ([place]ar[place]) [facility] Drs. Sanz and Cas ([place]) Dr. Martin ([place]) [facility] Dr. Rosario ([place]) Drs. Lal and ([place]) Medicaid Care Line Prescriptions: Clindamycin HCl 300 mg PO Q6 #28 capsule Forms: Elevated Blood Pressure, Smoking Cessation Education
[2018-08-06 00:26] VITALS: BP 132/89
== END 2018-08-06 00:32 | disposition home or self-care (01) ==
LOC: ER 21:15
DX: K08.89 Other specified disorders of teeth and supporting structures (principal); K02.9 Dental caries, unspecified; R68.84 Jaw pain; M54.2 Cervicalgia; R51 Headache; R22.0 Localized swelling, mass and lump, head; F17.210 Nicotine dependence, cigarettes, uncomplicated; E11.9 Type 2 diabetes mellitus without complications; I10 Essential (primary) hypertension
CPT/HCPCS: 99406; 99283; J3490

== ENCOUNTER 2018-08-15 01:39 | Emergency (ER) | payer SELFPAY ==
[2018-08-15] MEDS ORDERED: ASPIRIN 81 MG TABLET, CHEWABLE PO ONE (01:41)
[2018-08-15 02:21] LABS: ABSOLUTE BASOPHILS # (AUTO) 0.1 10^3/uL (0.0-0.2); ABSOLUTE EOSINOPHILS # (AUTO) 0.2 10^3/uL (0.0-0.6); ABSOLUTE LYMPHOCYTES (AUTO) 4.8 10^3/uL (0.5-4.7); ABSOLUTE MONOCYTES (AUTO) 1.1 10^3/uL (0.1-1.4); ABSOLUTE NEUT (AUTO) 5.1 10^3/uL (1.7-8.2); BASOPHILS % (AUTO) 0.7 % (0-2); EOSINOPHILS % (AUTO) 1.8 % (0-6); HEMATOCRIT 47.9 % (37.9-51.0); HEMOGLOBIN 16.5 g/dL (13.5-17.0); LYMPHOCYTES % (AUTO) 42.6 % (13-45); MEAN CORPUSCULAR HEMOGLOBIN 29.9 pg (27.0-33.4); MEAN CORPUSCULAR HGB CONC 34.4 g/dL (32.0-36.0); MEAN CORPUSCULAR VOLUME 87 fl (80-97); PLATELET COUNT 323 10^3/uL (150-450); RED BLOOD COUNT 5.51 10^6/uL (4.35-5.55); RED CELL DISTRIBUTION WIDTH 13.8 % (11.5-14.0); SEGMENTED NEUTROPHILS % (AUTO) 44.9 % (42-78); TOTAL CELLS COUNTED % (AUTO) 100 %; WHITE BLOOD COUNT 11.3 10^3/uL (4.0-10.5)
[2018-08-15] MEDS ORDERED: HALOPERIDOL LACTATE INJ 5 MG/1 ML VIAL IV ONE (02:31)
--- NOTE | 2018-08-15 02:35 | RADIOLOGY REPORT (SQ) ---
CLINICAL HISTORY: cp COMPARISON: None. TECHNIQUE: XR CHEST 1 VIEW 08/15/2018 1:41 AM CDT FINDINGS: Cardiac silhouette is normal in size. Lungs are clear without consolidation, atelectasis, mass or edema. There is no pleural effusion. There is no pneumothorax. There are no acute osseous findings. IMPRESSION: Clear lungs.
[2018-08-15 02:39] LABS: ALANINE AMINOTRANSFERASE 62 U/L (21-72); ALBUMIN 4.9 g/dL (3.5-5.0); ALKALINE PHOSPHATASE 38 U/L (38-126); ANION GAP 13 (5-19); ASPARTATE AMINO TRANSFERASE 37 U/L (17-59); BILIRUBIN,DIRECT 0.3 mg/dL (0.0-0.4); BLOOD UREA NITROGEN 13 mg/dL (7-20); CARBON DIOXIDE 22 mmol/L (22-30); CHLORIDE 106 mmol/L (98-107); GLUCOSE 115 mg/dL (75-110); POTASSIUM 4.5 mmol/L (3.6-5.0); SODIUM 141.1 mmol/L (137-145); TOTAL PROTEIN 8.3 g/dL (6.3-8.2)
--- NOTE | 2018-08-15 03:07 | ER Document Report ---
ED General - General Chief Complaint: Chest Pain Stated Complaint: CHEST PAIN Time Seen by Provider: 08/15/18 01:59 Notes: Patient is a 48-year-old male without chronic medical problems, does use tobacco daily who presents with multiple complaints. His first complaint is of chest pain to the left side underneath the breast that was a stabbing, intermittent pain that started approximately 7 PM and has now been resolved for approximately 5 hours without recurrence. She is a long-standing history of similar chest pain episodes in the past and has never been diagnosed as having coronary artery disease, has had multiple negative stress tests. Patient also complains of left-sided headache that is dull, throbbing, aching headache. States that this started gradually, has progressively worsened over a period of time. States that he has had many similar headaches in the past. He also notes diffuse paresthesias to his bilateral hands, left side of his face, and bilateral feet. Nothing improves or worsens the symptoms. Denies focal weakness or numbness. Denies confusion. Denies fever or constitutional symptoms. No head trauma. TRAVEL OUTSIDE OF THE [place] IN LAST 30 DAYS: No - Related Data Allergies/Adverse Reactions: No Known Allergies Allergy (Verified 08/15/18 01:39) Past Medical History - General Information source: Patient - Social History Smoking Status: Current Every Day Smoker Chew tobacco use (# tins/day): No Frequency of alcohol use: Social Drug Abuse: Marijuana Lives with: Family Family History: Reviewed & Not Pertinent Patient has suicidal ideation: No Patient has homicidal ideation: No - Past Medical History Cardiac Medical History: Reports: Hx Hypercholesterolemia, Hx Hypertension Endocrine Medical History: Reports: Hx Diabetes Mellitus Type 2 - diet controlled Renal/ Medical History: Denies: Hx Peritoneal Dialysis Psychiatric Medical History: Reports: Hx Depression - Immunizations Hx Diphtheria, Pertussis, Tetanus Vaccination: Yes Review of Systems - Review of Systems Notes: Constitutional: Negative for fever. HENT: Negative for sore throat. Eyes: Negative for visual changes. Cardiovascular: Positive for chest pain. Respiratory: Negative for shortness of breath. Gastrointestinal: Negative for abdominal pain, vomiting or diarrhea. Genitourinary: Negative for dysuria. Musculoskeletal: Negative for back pain. Skin: Negative for rash. Neurological: Negative for headaches, positive for paresthesias bilaterally 10 point ROS negative except as marked above and in HPI. Physical Exam - Vital signs Vitals: Temp Pulse Resp BP Pulse Ox 98.3 F 82 18 141/94 H 100 08/15/18 01:51 08/15/18 01:51 08/15/18 01:51 08/15/18 01:51 08/15/18 01:51 Interpretation: Hypertensive Notes: PHYSICAL EXAMINATION: GENERAL: Well-appearing, well-nourished and in no acute distress. HEAD: Atraumatic, normocephalic. EYES: Pupils equal round and reactive to light, extraocular movements intact, sclera anicteric, conjunctiva are normal. ENT: nares patent, oropharynx clear without exudates. Moist mucous membranes. NECK: Normal range of motion, supple without lymphadenopathy LUNGS: Breath sounds clear to auscultation bilaterally and equal. No wheezes rales or rhonchi. HEART: Regular rate and rhythm without murmurs ABDOMEN: Soft, nontender, normoactive bowel sounds. No guarding, no rebound. No masses appreciated. EXTREMITIES: Normal range of motion, no pitting or edema. No cyanosis. NEUROLOGICAL: Face symmetric. Tongue protrudes midline. Extraocular motions intact. Pupils are 2 mm and equally reactive. Normal speech, normal gait. 5 out of 5 strength in both the distal and proximal upper and lower extremities bilaterally. Sensation is grossly intact throughout. Finger to nose testing normal. Pronator drift normal. PSYCH: Normal mood, normal affect. SKIN: Warm, Dry, normal turgor, no rashes or lesions noted. Course - Re-evaluation Re-evalutation: 08/15/18 02:59 Presentation of chest pain in an otherwise well appearing patient. Low clinical suspicion for ACS given clinical history, exam, EKG without ST elevations or depressions, and negative initial troponin. HEART score less than or equal to 3. PE also seems unlikely given clinical history, absence of tachycardia or dyspnea. Patient is PERC criteria negative. CXR without evidence of pneumothorax or pneumonia. No widened mediastinum. Aortic dissection also seems unlikely given history, symmetric pulses, CXR, and vitals. Patient states that the symptoms have been ongoing recurrently over the last 2 years, he has not had any pain in the last 4-5 hours. Symptoms were present at approximately 7 PM and only lasted for 30 minutes. A single troponin is adequate as he presents more than 6 hours after onset of his chest pain. The patient did also complain of a left-sided headache as well as diffuse numbness and tingling. The patient has been seen repeatedly for all of the above complaints, states that sometimes he wonders if stress is contributing to all of his symptoms. He has no focal neurologic deficits on 2 separate neurologic exams. He has had resolution of all of his symptoms after receiving haloperidol for his headache. At this time will discharge with return precautions and follow-up recommendations. Verbal discharge instructions given a the bedside and opportunity for questions given. Medication warnings reviewed. Patient is in agreement with this plan and has verbalized understanding of return precautions and the need for primary care follow-up in the next 24-72 hours. - Vital Signs Vital signs: Temp Pulse Resp BP Pulse Ox 98.3 F 82 20 145/102 H 100 08/15/18 01:51 08/15/18 01:51 08/15/18 02:01 08/15/18 02:01 08/15/18 02:01 - Laboratory Result Diagrams: 08/15/18 02:00 08/15/18 02:00 Laboratory results interpreted by me: 08/15/18 08/15/18 02:00 02:00 WBC 11.3 H Absolute Lymphocytes 4.8 H Glucose 115 H Total Protein 8.3 H - Diagnostic Test Radiology reviewed: Image reviewed, Reports reviewed Radiology results interpreted by me: 08/15/18 02:59 Chest x-ray: No acute infiltrate or pneumothorax - EKG Interpretation by Me Additional EKG results interpreted by me: 08/15/18 03:07 Sinus rhythm. Rate 85. No ST elevations or depressions. QTC is 419. Discharge - Discharge Clinical Impression: Paresthesias, Chest discomfort Headache Qualifiers: Headache type: unspecified Headache chronicity pattern: acute headache Intractability: not intractable Qualified Code(s): R51 - Headache Condition: Good Disposition: HOME, SELF-CARE Additional Instructions: You have been seen in the Emergency Department (ED) for a headache. Please use Tylenol (acetaminophen) or Motrin (ibuprofen) as needed for symptoms, but only as written on the box. As we have discussed, please follow up with your primary care doctor as soon as possible regarding today's ED visit and your headache symptoms. Call your doctor or return to the ED if you have a worsening headache, sudden and severe headache, confusion, slurred speech, facial droop, weakness or numbness in any arm or leg, extreme fatigue, or other symptoms that concern you. You were seen today for chest pain. The exact cause of your pain is unclear. However, based on your cardiac enzyme testing, chest x-ray, and EKG it does not appear that it is from an immediately life-threatening cause at this time. Although your testing here is normal is critical that you follow-up with your primary care physician for continued evaluation of this chest pain and possible stress testing. I recommended you see your physician within the next 24-48 hours to be evaluated for consideration of a stress test. Please return to emergency department immediately if you have worsening of your chest pain, shortness of breath, vomiting, become unable to exert yourself due to pain or difficulty breathing, you pass out, or have any pain that radiates into your arms, jaw, or back. Please also return if you have any additional symptoms that are concerning to you.
[2018-08-15 04:07] VITALS: BP 131/87
--- NOTE | 2018-08-15 14:26 | EKG REPORT ---
SEVERITY:- NORMAL ECG - SINUS RHYTHM : Confirmed by: Saroj Barrientos 15-Aug-2018 14:26:17
== END 2018-08-15 04:09 | disposition home or self-care (01) ==
LOC: ER 01:39
DX: R07.9 Chest pain, unspecified (principal); R51 Headache; R20.2 Paresthesia of skin; R20.0 Anesthesia of skin; F17.200 Nicotine dependence, unspecified, uncomplicated; F12.10 Cannabis abuse, uncomplicated; E11.9 Type 2 diabetes mellitus without complications; I10 Essential (primary) hypertension
CPT/HCPCS: 93005; 99285; 96374; 36415; 85025; 80053; 84484; 71045; 93010; J1630

== ENCOUNTER 2018-08-19 00:31 | Emergency (ER) | payer SELFPAY ==
[2018-08-19] MEDS ORDERED: ASPIRIN 81 MG TABLET, CHEWABLE PO ONE (00:52)
--- NOTE | 2018-08-19 00:53 | ER Document Report ---
ED General - General Chief Complaint: Chest Pain Stated Complaint: CHEST PAINS Time Seen by Provider: 08/19/18 00:43 Notes: Patient is a 48-year-old male that comes to the emergency department for chief complaint of chest pain. He states that at 11 PM he started noticing pain along the mid to upper part of his chest on the left side with some radiation up towards the shoulder. Pain is worse with movement of the shoulder. 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 He denies injury, shortness of breath, nausea or vomiting. He smokes, denies alcohol or recreational drugs. He takes no daily medications. Past medical history of hypertension. Denies first-degree family member history of DE or cardiac disease. TRAVEL OUTSIDE OF THE [place] IN LAST 30 DAYS: No - Related Data Allergies/Adverse Reactions: No Known Allergies Allergy (Verified 08/15/18 01:39) Past Medical History - General Information source: Patient - Social History Smoking Status: Current Every Day Smoker Smoking Education Provided: Yes - <3 min Frequency of alcohol use: None Drug Abuse: None Lives with: Family Family History: Reviewed & Not Pertinent - Past Medical History Cardiac Medical History: Reports: Hx Hypercholesterolemia, Hx Hypertension Renal/ Medical History: Denies: Hx Peritoneal Dialysis Psychiatric Medical History: Reports: Hx Depression Surgical Hx: Negative - Immunizations Hx Diphtheria, Pertussis, Tetanus Vaccination: Yes Review of Systems - Review of Systems Constitutional: No symptoms reported EENT: No symptoms reported Cardiovascular: See HPI Respiratory: No symptoms reported Gastrointestinal: No symptoms reported Genitourinary: No symptoms reported Male Genitourinary: No symptoms reported Musculoskeletal: See HPI Skin: No symptoms reported Hematologic/Lymphatic: No symptoms reported Neurological/Psychological: No symptoms reported Physical Exam - Vital signs Vitals: Temp Pulse Resp BP Pulse Ox 98.3 F 96 18 140/93 H 100 08/19/18 00:40 08/19/18 00:40 08/19/18 00:40 08/19/18 00:40 08/19/18 00:40 - Notes Notes: GENERAL: Alert, interacts well. No acute distress. HEAD: Normocephalic, atraumatic. EYES: Pupils equal, round, and reactive to light. Extraocular movements intact. ENT: Oral mucosa moist, tongue midline. Oropharynx unremarkable. Airway patent. Nares patent, no nasal septal hematoma, TM's intact. NECK: Full range of motion. Supple. Trachea midline. LUNGS: Clear to auscultation bilaterally, no wheezes, rales, or rhonchi. No respiratory distress. There is reproducible tenderness over the left lower chest extending up to the mid pectoral region. No severe tenderness, erythema, crepitus. Pain over the pectoral area with range of motion of the left remaining exam unremarkable. HEART: Regular rate and rhythm. No murmur ABDOMEN: Soft, non-tender. Non-distended. Bowel sounds present in all 4 quadrants. GENITOURINARY: Deferred EXTREMITIES: Moves all 4 extremities spontaneously. No edema, normal radial and dorsalis pedis pulses bilaterally. No cyanosis. BACK: no cervical, thoracic, lumbar midline tenderness. No saddle anesthesia, normal distal neurovascular exam. NEUROLOGICAL: Alert and oriented x3. Normal speech. [cranial nerves II through XII grossly intact]. PSYCH: Normal affect, normal mood. SKIN: Warm, dry, normal turgor. No rashes or lesions noted. Course - Re-evaluation Re-evalutation: EKG showing sinus rhythm at a rate of 90, no T wave inversions or ST segment changes in consecutive leads, no noted change from prior. Patient has had multiple negative stress tests for intermittent chest pain over the past 2 years per his previous records. Patient does confirm negative stress tests. Patient states he has actually had this same pain that he comes in for tonight for the past 2 years intermittently. He states that usually he can rest, sleep, or something similar and the pain resolves. Patient has reproducible chest wall pain and pain with motion of the left arm/shoulder on my evaluation which is mild. CBC, chemistry unremarkable. Cardiac enzyme negative. Chest x-ray unremarkable. Patient was seen here a few days ago for the very similar symptoms. Discussed with patient. Discussed cycling cardiac enzymes although I have very low suspicion of ACS based on his evaluation so far , low suspicion of aortic dissection or PE, unremarkable workup so far. On reevaluation patient still has pain with movement but otherwise no symptoms. After discussion with patient patient prefers to go home now, declines additional tests including cycle cardiac enzymes, patient will be treated with dose of dexamethasone for his pain along with naproxen at home. Discussed follow-up with primary care, school cessation, and return precautions in detail. Patient states satisfaction and agreement with plan. - Vital Signs Vital signs: Temp Pulse Resp BP Pulse Ox 97.7 F 96 19 134/95 H 100 08/19/18 02:20 08/19/18 00:40 08/19/18 02:20 08/19/18 02:20 08/19/18 02:20 - Laboratory Result Diagrams: 08/19/18 00:54 08/19/18 00:54 Laboratory results interpreted by me: 08/19/18 08/19/18 00:54 00:54 WBC 10.7 H Glucose 114 H Discharge - Discharge Clinical Impression: Chest wall pain Chest pain Qualifiers: Chest pain type: unspecified Qualified Code(s): R07.9 - Chest pain, unspecified Condition: Stable Disposition: HOME, SELF-CARE Additional Instructions: Your evaluation indicates that the pain is probably coming from the the cartilage and muscles along her chest wall. You have been medicated for this. Continue medication with naproxen as prescribed (take Pepcid to avoid stomach upset with this). Rest your arm/shoulder/chest. You can apply heat to the area. Follow-up with primary care for additional evaluation and management. Stop smoking. Return if you worsen including severe pain, passing out, difficulty breathing, fever of 100.4 or greater, vomiting, or any other concerning symptoms. Prescriptions: Famotidine [Pepcid 20 mg Tablet] 20 mg PO DAILY #20 tablet Naproxen 500 mg PO BID PRN #20 tablet PRN Reason:
[2018-08-19 01:02] LABS: ABSOLUTE BASOPHILS # (AUTO) 0.1 10^3/uL (0.0-0.2); ABSOLUTE EOSINOPHILS # (AUTO) 0.3 10^3/uL (0.0-0.6); ABSOLUTE LYMPHOCYTES (AUTO) 4.3 10^3/uL (0.5-4.7); ABSOLUTE MONOCYTES (AUTO) 1.1 10^3/uL (0.1-1.4); ABSOLUTE NEUT (AUTO) 4.8 10^3/uL (1.7-8.2); BASOPHILS % (AUTO) 0.8 % (0-2); EOSINOPHILS % (AUTO) 2.9 % (0-6); HEMATOCRIT 45.1 % (37.9-51.0); HEMOGLOBIN 15.5 g/dL (13.5-17.0); LYMPHOCYTES % (AUTO) 40.7 % (13-45); MEAN CORPUSCULAR HGB CONC 34.5 g/dL (32.0-36.0); MEAN CORPUSCULAR VOLUME 87 fl (80-97); MONOCYTES % (AUTO) 10.5 % (3-13); PLATELET COUNT 287 10^3/uL (150-450); RED BLOOD COUNT 5.18 10^6/uL (4.35-5.55); RED CELL DISTRIBUTION WIDTH 13.6 % (11.5-14.0); SEGMENTED NEUTROPHILS % (AUTO) 45.1 % (42-78); TOTAL CELLS COUNTED % (AUTO) 100 %; WHITE BLOOD COUNT 10.7 10^3/uL (4.0-10.5)
[2018-08-19 01:14] LABS: ANION GAP 10 (5-19); BLOOD UREA NITROGEN 11 mg/dL (7-20); CALCIUM 9.9 mg/dL (8.4-10.2); CARBON DIOXIDE 27 mmol/L (22-30); CHLORIDE 106 mmol/L (98-107); GLUCOSE 114 mg/dL (75-110)
--- NOTE | 2018-08-19 01:16 | RADIOLOGY REPORT (SQ) ---
EXAM DESCRIPTION: XR CHEST 1 VIEW COMPLETED DATE/TME: 08/19/2018 00:50 CLINICAL HISTORY: 48 years, Male, chest pain COMPARISON: 08/15/2018 chest x-ray NUMBER OF VIEWS: 1 TECHNIQUE: Frontal view the chest LIMITATIONS: None. FINDINGS: The heart size is stable. Lungs are clear. No pneumothorax IMPRESSION: No acute cardiopulmonary process 2010 [facility] [employer]- All Rights Reserved
[2018-08-19] MEDS ORDERED: DEXAMETHASONE SOD PHOS INJ 10 MG/1 ML VIAL IV ONE (01:55)
[2018-08-19 02:25] VITALS: BP 134/95
--- NOTE | 2018-08-19 08:24 | EKG REPORT ---
SEVERITY:- BORDERLINE ECG - SINUS RHYTHM PROBABLE LEFT ATRIAL ABNORMALITY BORDERLINE LEFT AXIS DEVIATION : Confirmed by: Elo Watson MD 19-Aug-2018 08:23:24
== END 2018-08-19 02:25 | disposition home or self-care (01) ==
LOC: ER 00:31
DX: R07.89 Other chest pain (principal); F17.200 Nicotine dependence, unspecified, uncomplicated; I10 Essential (primary) hypertension
CPT/HCPCS: 93005; 99285; 96374; 36415; 85025; 80048; 84484; 71045; 93010; J1100

== ENCOUNTER 2018-09-10 11:03 | Emergency (ER) | payer SELFPAY ==
[2018-09-10 11:11] VITALS: BP 151/96
[2018-09-10] MEDS ORDERED: LIDOCAINE 1% INJ-PF (10 MG/ML) 30 ML SDV INJ ONE (11:35)
[2018-09-10] MEDS ORDERED: IBUPROFEN 800 MG TABLET PO ONE (11:38)
--- NOTE | 2018-09-10 11:41 | ER Document Report ---
ED Oral Problem - General Chief Complaint: Toothache Stated Complaint: MOUTH/NECK PAIN, HEADACHE Time Seen by Provider: 09/10/18 11:35 Mode of Arrival: Ambulatory Information source: Patient Notes: 48-year-old male presents to ED for complaint of dental pain to the right lower jaw that is causing pain to go to his head and neck for the last 2 days. he states he has a dental appointment at the end of the month. He states that now he is got a bump in front of his tooth, he states the pains been longer than 2 days but the bumps been there for 2 days TRAVEL OUTSIDE OF THE [place] IN LAST 30 DAYS: No - HPI Patient complains to provider of: Toothache Onset: Other Onset: Gradual - Worse for the last 2 days Quality of pain: Achy, Sharp, Throbbing Severity: Moderate Pain Level: 3 Associated symptoms: Toothache Relieved by: Nothing Similar symptoms previously: Yes Recently seen / treated by doctor/dentist: No - Related Data Allergies/Adverse Reactions: No Known Allergies Allergy (Verified 09/10/18 11:04) Past Medical History - General Information source: Patient - Social History Smoking Status: Current Every Day Smoker Cigarette use (# per day): Yes Chew tobacco use (# tins/day): No Smoking Education Provided: Yes - 4 minutes Frequency of alcohol use: Social - Couple times a week Drug Abuse: Marijuana - States he stopped 2 weeks ago Occupation: [employer] Lives with: Family Family History: Reviewed & Not Pertinent Patient has suicidal ideation: No Patient has homicidal ideation: No - Past Medical History Cardiac Medical History: Reports: Hx Hypercholesterolemia, Hx Hypertension Pulmonary Medical History: Reports: None EENT Medical History: Reports: None Endocrine Medical History: Reports: Hx Diabetes Mellitus Type 2 - diet controlled Renal/ Medical History: Reports: None Malignancy Medical History: Reports None GI Medical History: Reports: None Musculoskeletal Medical History: Reports Hx Musculoskeletal Trauma Skin Medical History: Reports None Psychiatric Medical History: Reports: Hx Depression Traumatic Medical History: Reports: None Infectious Medical History: Reports: None Surgical Hx: Negative Past Surgical History: Reports: None - Immunizations Hx Diphtheria, Pertussis, Tetanus Vaccination: Yes Review of Systems - Review of Systems Notes: REVIEW OF SYSTEMS: CONSTITUTIONAL : Denies fever, chills, or sweats. Denies recent illness. EENT: Denies eye, ear, throat pain or symptoms. Denies nasal or sinus congestion or discharge. Denies throat, tongue, or mouth swelling or difficulty swallowing. Dental pain to the right lower jaw there is a small dental abscess number 28 and 29 CARDIOVASCULAR: Denies chest pain. Denies palpitations or racing or irregular heart beat. Denies ankle edema. RESPIRATORY: Denies cough, cold, or chest congestion. Denies shortness of breath, difficulty breathing, or wheezing. GASTROINTESTINAL: Denies abdominal pain or distention. Denies nausea, vomiting , or diarrhea. Denies blood in vomitus, stools, or per rectum. Denies black, tarry stools. Denies constipation. GENITOURINARY: Denies difficulty urinating, painful urination, burning, frequency, blood in urine, or discharge. MUSCULOSKELETAL: Denies back or neck pain or stiffness. Denies joint pain or swelling. SKIN: Denies rash, lesions or sores. HEMATOLOGIC : Denies easy bruising or bleeding. LYMPHATIC: Denies swollen, enlarged glands. NEUROLOGICAL: Denies confusion or altered mental status. Denies passing out or loss of consciousness. Denies dizziness or lightheadedness. Denies headache. Denies weakness or paralysis or loss of use of either side. Denies problems with gait or speech. Denies sensory loss, numbness, or tingling. Denies seizures. PSYCHIATRIC: Denies anxiety or stress. Denies depression, suicidal ideation, or homicidal ideation. ALL OTHER SYSTEMS REVIEWED AND NEGATIVE. Dictation was performed using [employer] voice recognition software PHYSICAL EXAMINATION: GENERAL: Well-appearing, well-nourished and in no acute distress. HEAD: Atraumatic, normocephalic. EYES: Pupils equal round and reactive to light, extraocular movements intact, sclera anicteric, conjunctiva are normal. ENT: Nares patent, oropharynx clear without exudates. Moist mucous membranes. Dental tenderness to tooth #2829 with an abscess front of these 2 teeth in the gum. No swelling to the jaw no swelling to the ear ears are not infected. NECK: Normal range of motion, supple without lymphadenopathy LUNGS: Breath sounds clear to auscultation bilaterally and equal. No wheezes rales or rhonchi. HEART: Regular rate and rhythm without murmurs ABDOMEN: Soft, nontender, nondistended abdomen. No guarding, no rebound. No masses appreciated. Musculoskeletal: Normal range of motion, no pitting or edema. No cyanosis. NEUROLOGICAL: Cranial nerves grossly intact. Normal speech, normal gait. Normal sensory, motor exams PSYCH: Normal mood, normal affect. SKIN: Warm, Dry, normal turgor, no rashes or lesions noted. Physical Exam - Vital signs Vitals: Temp Pulse Resp BP 98.2 F 94 14 151/96 H 09/10/18 11:08 09/10/18 11:08 09/10/18 11:08 09/10/18 11:08 Course - Vital Signs Vital signs: Temp Pulse Resp BP Pulse Ox 98.2 F 94 14 151/96 H 09/10/18 11:08 09/10/18 11:08 09/10/18 11:08 09/10/18 11:08 Procedures - Incision and Drainage Right Lower jaw Type: Simple Anesthetic type: 1% Lidocaine mL's of anesthetic: 3 Blade size: Other Incision Method: Incision made with needle Amount/type of drainage: Moderate amount of purulent drainage Discharge - Discharge Clinical Impression: Pain due to dental caries, Dental abscess Condition: Stable Disposition: HOME, SELF-CARE Additional Instructions: TOOTHACHE: Your pain is due to dental decay. The tooth must be repaired in order for you to feel better. You will, therefore, be referred to a dentist. We do not have dentists on the staff at [facility]. Severe swelling or drainage around a tooth usually means a dental abscess. This also requires evaluation and treatment by the dentist, but antibiotics may be prescribed while awaiting dental treatment. You should be rechecked immediately if you develop major swelling of the face, increasing pain, a lump in the jaw or gums, headache, difficulty swallowing, or fever. PENICILLIN V K: You have been given a prescription for Penicillin VK. Your physician has determined that this is the best antibiotic for your condition. Pen VK can be taken with meals, however more of the antibiotic gets into the bloodstream if it's taken on an empty stomach. Penicillin usually has no side effects. However, allergy to penicillins is common. If you have had an allergic reaction to any drug of the penicillin family, you should never take any other penicillin. Notify your doctor at once if you develop hives, itching, swelling, faintness, or shortness of breath. Salt and soda solution 1 quart of water 1 tablespoon of salt 1 teaspoon of baking soda Mixed 3 ingredients together and boil for 1 minute Placed in a covered quart jar Use 1/2 ounce of cold solution to gargle 3 times a day FOLLOW-UP CARE: You have been referred for follow-up care to the dentists listed below. Call the dentists office for an appointment as you were instructed or within the next two days. If you experience worsening or a significant change in your symptoms, notify the physician immediately or return to the Emergency Department at any time for re-evaluation. [facility] [address] [place], [place] [facility] [address] [place] [address] [facility] [address] [facility] [address] [facility] (4th) [facility] [address] [email or web address] [address] [place] [address] Friday- 8:00am to 5:00 pm Will see patients from other [facility]. Charges based on income and family size and accepts Medicare, Medicaid, and Insurances Will pull molars [facility] Student Clinics [facility] [address] Hours of Operation 8:00 am - 4:30 pm weekdays The following dental offices accept Medicaid: [facility] Dr. [address] Dr. Price Dr. Crocker Dr. Lanier Brenton Barclay, [place], and [facility] oral surgery Dr. Mauricio ([place]) Dr. Soto ([place] Villarreal) [facility] Drs. Kam ([place]) Dr. Martin ([place]) [facility] Dr. Rosario ([place]) Drs. Lal and ([place]) Medicaid Care Line Prescriptions: Penicillin V Potassium [Penicillin Vk 500 mg Tablet] 500 mg PO BID #20 tablet Forms: Elevated Blood Pressure, Smoking Cessation Education, Return to Work
[2018-09-10] MEDS ORDERED: PENICILLIN V POTASSIUM 500 MG TABLET PO ONE (11:49)
== END 2018-09-10 11:54 | disposition home or self-care (01) ==
LOC: ER 11:03
DX: K04.7 Periapical abscess without sinus (principal); K08.89 Other specified disorders of teeth and supporting structures; R51 Headache; M54.2 Cervicalgia; I10 Essential (primary) hypertension; E11.9 Type 2 diabetes mellitus without complications; F17.210 Nicotine dependence, cigarettes, uncomplicated; Z71.6 Tobacco abuse counseling
CPT/HCPCS: 99406; 99283; 40800; J3490

== ENCOUNTER 2018-09-13 10:09 | Emergency (ER) | payer SELFPAY ==
[2018-09-13] MEDS ORDERED: LIDOCAINE 1% INJ-PF (10 MG/ML) 30 ML SDV INJ ONE (10:44)
[2018-09-13] MEDS ORDERED: CEFTRIAXONE INJ 250 MG VIAL IM ONE (10:44)
[2018-09-13] MEDS ORDERED: AZITHROMYCIN 1 GM SUSP PACKET PO ONE (10:44)
[2018-09-13] MEDS ORDERED: AZITHROMYCIN 250 MG TABLET PO ONE (10:47)
--- NOTE | 2018-09-13 10:52 | ER Document Report ---
ED General - General Chief Complaint: Penile Pain Stated Complaint: TESTICLE PAIN Time Seen by Provider: 09/13/18 10:35 Information source: Patient Notes: 48-year-old male who presents with 2 different complaints. He states he had a dental abscess drained around Thanksgiving here at this facility to his right level teeth and he states around 1 week he has had a little pain to the tip of his penis. He states it is often when he urinates. He denies any testicular pain. He denies any scrotal swelling or erythema. He states he did not mention to the provider this complaint on his last visit. He does have a new sexual partner. TRAVEL OUTSIDE OF THE [place] IN LAST 30 DAYS: No - HPI Onset: Other - See above Onset/Duration: Gradual Quality of pain: Other Severity: Mild Pain Level: Denies Associated symptoms: Other - See above Exacerbated by: Denies Relieved by: Denies Similar symptoms previously: Yes Recently seen / treated by doctor: No - Related Data Allergies/Adverse Reactions: No Known Allergies Allergy (Verified 09/10/18 11:04) Past Medical History - Social History Smoking Status: Unknown if Ever Smoked Family History: Reviewed & Not Pertinent - Past Medical History Cardiac Medical History: Reports: Hx Hypercholesterolemia, Hx Hypertension Endocrine Medical History: Reports: Hx Diabetes Mellitus Type 2 - diet controlled Renal/ Medical History: Denies: Hx Peritoneal Dialysis Musculoskeletal Medical History: Reports Hx Musculoskeletal Trauma Psychiatric Medical History: Reports: Hx Depression - Immunizations Hx Diphtheria, Pertussis, Tetanus Vaccination: Yes Review of Systems - Review of Systems Constitutional: denies: Fever EENT: denies: Eye discharge, Nose discharge, Throat pain, Difficulty swallowing , Throat swelling, Mouth swelling Cardiovascular: denies: Chest pain, Palpitations Respiratory: denies: Short of breath Gastrointestinal: denies: Vomiting Genitourinary: Burning, Dysuria Musculoskeletal: denies: Leg swelling Skin: Other - no hives. denies: Rash Neurological/Psychological: Other - no slurred speech -: Yes All other systems reviewed and negative Physical Exam - Vital signs Vitals: Temp Pulse Resp BP Pulse Ox 98.7 F 86 20 141/86 H 98 09/13/18 10:13 09/13/18 10:13 09/13/18 10:13 09/13/18 10:13 09/13/18 10:13 Notes: Reviewed vital signs and nursing note as charted by RN. CONSTITUTIONAL: Alert and oriented and responds appropriately to questions. Well -appearing; well-nourished HEAD: Normocephalic; atraumatic EYES: PERRL; Conjunctivae clear, sclerae non-icteric ENT: Normal nose; no rhinorrhea; no facial swelling. No tenderness or lymphadenopathy to the anterior posterior neck. Patient has some dental decay mostly to the right posterior molars with no obvious intraoral abscess appreciated NECK: Supple without meningismus; non-tender; no cervical lymphadenopathy, no masses ABD/GI: Normal bowel sounds; non-distended; soft, non-tender GI/: Patient has no scrotal erythema, swelling, or testicular pain. Patient has no obvious penile lesions with no discharge with milking the urethra. BACK: The back appears normal and is non-tender to palpation EXT: Normal ROM in all joints; non-tender to palpation; no edema SKIN: No acute lesions noted Course - Re-evaluation Re-evalutation: 09/13/18 10:51 Given the above history and physical examination, I will obtain a urine analysis , urine culture, and urine chlamydia and gonorrhea. I will proactively treat this patient. Given the patient's dental complaint, he is currently taking the antibiotics and I do not detect any obvious dental abscess or facial swelling. Patient will be instructed to follow-up with the same dentist list and strict return precautions will be provided. Patient understands not to have any sexual encounters until both he and his partners have been completely treated. - Vital Signs Vital signs: Temp Pulse Resp BP Pulse Ox 98.7 F 86 20 141/86 H 98 09/13/18 10:13 09/13/18 10:13 09/13/18 10:13 09/13/18 10:13 09/13/18 10:13 Discharge - Discharge Clinical Impression: Penile pain, Dental caries Condition: Good Disposition: HOME, SELF-CARE Additional Instructions: Comeback immediately with any increased pain, any swelling of the penis, scrotum , or testicle, any facial swelling, any difficulty breathing or swallowing, any fevers, or any other acute problems. Please make sure that you follow-up with the dental list that was provided to you and complete the course of antibiotics. Please do not engage in any sexual activity with any partners until both you and your partners have been completely treated.
[2018-09-13 11:10] LABS: APPEARANCE,URINE SLIGHTLY-CLOUDY; BILIRUBIN,URINE NEGATIVE (NEGATIVE); COLOR,URINE AMBER; GLUCOSE, URINE NEGATIVE (NEGATIVE); KETONES,URINE TRACE mg/dL (NEGATIVE); LEUKOCYTE ESTERASE,URINE NEGATIVE (NEGATIVE); NITRITE,URINE NEGATIVE (NEGATIVE); PROTEIN,URINE NEGATIVE (NEGATIVE); URINE SPECIFIC GRAVITY 1.033
[2018-09-13 11:26] VITALS: BP 137/85
[2018-09-13 12:36] LABS: CHLAM PCR NOT DETECTED (NOT DETECT); GON PCR NOT DETECTED (NOT DETECT)
== END 2018-09-13 11:26 | disposition home or self-care (01) ==
LOC: ER 10:09
DX: K02.9 Dental caries, unspecified (principal); N48.89 Other specified disorders of penis; K04.7 Periapical abscess without sinus; I10 Essential (primary) hypertension; E11.9 Type 2 diabetes mellitus without complications
CPT/HCPCS: 99284; 96372; 87086; 81001; 87491; 87591; J3490; J0696